=== PATIENT | male | born 1980 | race African-American/Black ===

== ENCOUNTER 2023-11-14 08:45 | Inpatient (IN) ==
[2023-11-14 10:12] LABS: BASOPHILS % (AUTO) 0.5 % (0.2-1.0); EOSINOPHILS % (AUTO) 0.8 % (0.9-2.9); HEMATOCRIT 46.4 % (42.0-54.0); HEMOGLOBIN 15.5 g/dL (13.5-18.0); LYMPHOCYTES # (AUTO) 2.7 X10^3/uL (1.3-2.9); LYMPHOCYTES % (AUTO) 51.3 % (21.0-51.0); MEAN CORPUSCULAR HEMOGLOBIN 26.1 pg (27.0-34.0); MEAN CORPUSCULAR HGB CONC 33.3 g/dL (33.0-35.0); MEAN CORPUSCULAR VOLUME 78.2 fL (80.0-100.0); MEAN PLATELET VOLUME 7.7 fL (7.4-11.0); MONOCYTES # (AUTO) 0.6 x10^3/uL (0.3-0.8); MONOCYTES % (AUTO) 12.4 % (0.0-13.0); NEUTROPHILS # (AUTO) 1.8 x10^3/uL (2.2-4.8); PLATELET COUNT 232 X10^3/uL (150.0-450.0); RED BLOOD COUNT 5.94 X10^6/uL (4.7-6.0); WHITE BLOOD COUNT 5.2 X10^3/uL (3.6-10.0)
[2023-11-14] MEDS: D5 1/2 NS 1,000 ML 1,000 ML IV SCH (10:19)
[2023-11-14] MEDS: PROTONIX INJ 40 MG VIAL IVP SCH (10:20)
[2023-11-14 10:21] LABS: ALANINE AMINOTRANSFERASE 20 Units/L (12-78); ALBUMIN 3.8 g/dL (3.4-5.0); ALKALINE PHOSPHATASE 74 Units/L (46-116); ASPARTATE AMINO TRANSFERASE 14 Units/L (15-37); BLOOD UREA NITROGEN 8 mg/dL (7-18); CALCIUM 8.3 mg/dL (8.5-10.1); CHLORIDE 99 mmol/L (98-107); CREATININE 0.99 mg/dL (0.70-1.30); GLUCOSE 89 mg/dL (65-99); POTASSIUM 3.1 mmol/L (3.5-5.1); SODIUM 138 mmol/L (136-145); eGFR NON BLACK RACES > 60 (>60)
[2023-11-14] MEDS: ZOFRAN INJ 4 MG VIAL IVP PRN (12:42)
[2023-11-14] MEDS: GOLYTELY or GAVILYTE or Equivalent PO SCH (15:11)
[2023-11-14] MEDS: MORPHINE SULFATE INJ 2 MG INJ IVP PRN (16:03)
[2023-11-15] MEDS: HIBICLENS WASH EXT ONE (02:15)
[2023-11-15 04:31] LABS: BILIRUBIN,URINE NEGATIVE (NEGATIVE); BLOOD/HEMOGLOBIN,URINE NEGATIVE (NEGATIVE); GLUCOSE, URINE NEGATIVE (NEGATIVE); KETONES,URINE NEGATIVE (NEGATIVE); LEUKOCYTE ESTERASE ,URINE NEGATIVE (NEGATIVE); NITRITES,URINE NEGATIVE (NEGATIVE); PROTEIN,URINE NEGATIVE (NEGATIVE); UROBILINOGEN,URINE NORMAL (NORMAL)
[2023-11-15 04:32] LABS: APPEARANCE,URINE CLEAR (CLEAR); COLOR,URINE PALE YELLOW (YELLOW)
[2023-11-15 05:21] LABS: BASOPHILS % (AUTO) 0.3 % (0.2-1.0); EOSINOPHILS # (AUTO) 0.1 x10^3/uL (0.0-0.2); EOSINOPHILS % (AUTO) 2.4 % (0.9-2.9); HEMATOCRIT 41.5 % (42.0-54.0); HEMOGLOBIN 13.7 g/dL (13.5-18.0); LYMPHOCYTES # (AUTO) 2.2 X10^3/uL (1.3-2.9); LYMPHOCYTES % (AUTO) 45.8 % (21.0-51.0); MEAN CORPUSCULAR HEMOGLOBIN 25.7 pg (27.0-34.0); MEAN CORPUSCULAR HGB CONC 32.9 g/dL (33.0-35.0); MEAN CORPUSCULAR VOLUME 78.2 fL (80.0-100.0); MEAN PLATELET VOLUME 7.9 fL (7.4-11.0); MONOCYTES # (AUTO) 0.8 x10^3/uL (0.3-0.8); MONOCYTES % (AUTO) 16.5 % (0.0-13.0); NEUTROPHILS # (AUTO) 1.6 x10^3/uL (2.2-4.8); PLATELET COUNT 213 X10^3/uL (150.0-450.0); RED BLOOD COUNT 5.31 X10^6/uL (4.7-6.0); RED CELL DISTRIBUTION WIDTH 13.5 % (11.6-16.5); WHITE BLOOD COUNT 4.7 X10^3/uL (3.6-10.0)
[2023-11-15 05:31] LABS: ALANINE AMINOTRANSFERASE 14 Units/L (12-78); ALBUMIN 3.1 g/dL (3.4-5.0); ALKALINE PHOSPHATASE 59 Units/L (46-116); ASPARTATE AMINO TRANSFERASE 11 Units/L (15-37); BLOOD UREA NITROGEN 5 mg/dL (7-18); CALCIUM 7.7 mg/dL (8.5-10.1); CARBON DIOXIDE 29.7 mmol/L (21-32); CHLORIDE 101 mmol/L (98-107); COR CA(FOR HYPOALB) 8.4 mg/dL (8.5-10.1); CREATININE 0.89 mg/dL (0.70-1.30); GLUCOSE 108 mg/dL (65-99); MAGNESIUM 1.8 mg/dL (2.0-2.9); SODIUM 140 mmol/L (136-145); TOTAL PROTEIN 6.5 g/dL (6.4-8.2); eGFR NON BLACK RACES > 60 (>60)
[2023-11-15 05:35] LABS: POTASSIUM 2.8 mmol/L (3.5-5.1)
[2023-11-15] MEDS ORDERED: CONSULT PHARMACY - POTASSIUM & MAGNESIUM XX SCH (06:30)
[2023-11-15] MEDS: NS 1,000 ML IV 1,000 ML ONE (08:28)
[2023-11-15] MEDS: DIPRIVAN VIAL 40 ML ONE (08:34)
[2023-11-15] MEDS ORDERED: MAG-OX TAB PO SCH (09:00)
[2023-11-15] MEDS ORDERED: K-DUR TAB 20 MEQ PO SCH (09:00)
[2023-11-15] MEDS: D5 1/2 NS + KCL 20 MEQ/L 1,000 ML with MAGNESIUM SULFATE 50% INJ VIAL 1 G IV SCH (09:09)
[2023-11-15 11:25] VITALS: BP 143/97; PULSE 79; RESP 18; TEMP 97.9; O2SAT 99
--- NOTE | 2023-11-15 13:47 | US ---
EXAM: GALL BLADDER HISTORY: ABD PAIN, N&V; nausea and vomiting unavailable COMPARISON: None. TECHNIQUE: Multiple sauer scale and color flow Doppler images of the right upper quadrant were obtained. FINDINGS: The liver is normal in echotexture and normal in size. No focal intraparenchymal mass or intrahepatic biliary ductal dilatation is observed. The gallbladder does not demonstrate cholelithiasis or layering sludge. The common bile duct is normal in size for age, measuring 3 mm. No pericholecystic fluid or gallblad salma wall thickening is observed. The right kidney is normal in size without focal parenchymal mass or nephrolithiasis. The right kidne y measurers 11 x 5 cm. No hydronephrosis or perirenal fluid can be observed. The pancreatic head and body are unremarkable. The pancreatic tail is largely obscured by overlying b owel gas. IMPRESSION: Unremarkable examination of the right upper quadrant. THIS IS AN ELECTRONICALLY VERIFIED FINAL REPORT 11/15/2023 1:44 PM - Electronically signed by Kade Anderson
[2023-11-15] MEDS ORDERED: CARAFATE PO SCH (14:00)
== END 2023-11-15 13:00 | disposition home or self-care (01) | DRG 392 ==
LOC: MED/SURG 09:12
PROVIDERS: ADMIT Surgery; ATTEND Surgery
DX: E87.6 Hypokalemia; K29.90 Gastroduodenitis, unspecified, without bleeding; R10.84 Generalized abdominal pain; R11.2 Nausea with vomiting, unspecified; R10.31 Right lower quadrant pain; R63.4 Abnormal weight loss; K31.89 Other diseases of stomach and duodenum